=== PATIENT | male | born 1935 | race Caucasian/White ===

== ENCOUNTER 2023-03-25 16:54 | Emergency (ER) | payer MEDICARE, SELFPAY ==
[2023-03-25 16:57] VITALS: BP 163/70
[2023-03-25 17:14] LABS: % Basophils 1.2 % (0-2); % Eosinophils 2.5 % (0-6); % Immature Granulocytes 0.4 % (0-0.5); % Lymphocytes 25.4 % (20.5-51.1); % Monocytes 9.6 % (1.7-9.3); % Neutrophils 60.9 % (42.2-75.2); Absolute Basophils 0.1 10^3/uL (0-0.2); Absolute Eosinophils 0.1 10^3/uL (0-0.7); Absolute Lymphocytes 1.3 10^3/uL (1.2-3.4); Absolute Monocytes 0.5 10^3/uL (0.1-0.6); Absolute Neutrophils 3.1 10^3/uL (1.4-6.5); Hematocrit 33.3 % (39.0-52.0); Hemoglobin 11.2 g/dL (13.0-18.0); Mean Corp Hgb Conc. 33.6 g/dL (33.0-37.0); Mean Corpuscular Hgb 30.7 pg (27.0-31.0); Mean Corpuscular Volume 91.2 fL (80.0-94.0); Mean Platelet Volume 11.1 fL (7.4-10.4); Nucleated Red Blood Cells % 0 % (-); Platelet Count 166 10^3/uL (130-400); Red Blood Cell Count 3.65 10^6/uL (4.70-6.10); Red Cell Dist. Width 13.7 % (11.5-14.5); White Blood Cell Count 5.1 10^3/uL (4.8-10.8)
[2023-03-25 17:35] LABS: ALT (SGPT) 22 U/L (0-50); AST (SGOT) 39 U/L (17-59); Albumin 3.8 g/dl (3.5-5.0); Alkaline Phosphatase 70 U/L (38-126); Blood Urea Nitrogen 14 mg/dl (9-20); Calcium 9.6 mg/dl (8.4-10.2); Carbon Dioxide 31 mmol/L (22-30); Chloride 100 mmol/L (98-107); Glucose 108 mg/dl (70-99); Sodium 138 mmol/L (135-145); Total Bilirubin 0.7 mg/dl (0.2-1.3); Total Protein 6.4 g/dl (6.3-8.2); eGFR > 60.00
[2023-03-25 17:41] LABS: Troponin I < 0.012 ng/ml
--- NOTE | 2023-03-25 18:23 | EDRN ---
Lucretia KEYS in room w/ pt at this time.
--- NOTE | 2023-03-25 18:41 | ED.GENMED ---
History of Present Illness
<Kayy Hoffman PA-C - Last Filed: 03/25/23 19:20>
General
Chief Complaint: Blood Pressure Problem
Source: patient
Exam Limitations: none
Time Seen by Provider: 03/25/23 18:10
Nursing documentation reviewed up to this point in time: agreed with
Travel History
Have you had any contact with someone who has COVID-19?: No
Do you have any symptoms of coronavirus? Fever > 100 degrees, chills, cough, shortness of breath, sore throat, loss of taste or smell, muscle aches, or headache?: No
History of Present Illness
History of Present Illness:
Patient is an 87-year-old male with history hypertension, hyperlipidemia presenting for evaluation of high blood pressure readings at home. He states that his friend was over yesterday and noticed that his face felt a little flushed so he decided
to take his blood pressure. At that time he had readings as high as 180s/ 80s. He denies any severe headaches, changes in vision, back pain, chest pain, shortness of breath, weakness. He has been treated for hypertension for over 2 years with
lisinopril 10 mg. This was prescribed through his primary care provider who he reports recently retired. His prescription has and he has been without his lisinopril for the past approximately 1 month. He is currently searching for a new
primary care provider.
Past History
<Kayy Hoffman PA-C - Last Filed: 03/25/23 19:20>
Past History
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
Patient has exhibited threatening behavior?: No
Social History
Tobacco: Non-smoker
Living: with family
Phy Exam
<Kayy Hoffman PA-C - Last Filed: 03/25/23 19:20>
Physical Exam
Physical Exam:
General: Well appearing and non-toxic, vital signs reviewed�patient afebrile
HEENT: Atraumatic, normocephalic; pupils equal round reactive light bilaterally, extraocular muscles intact bilaterally, protecting airway
Neck: appears supple, no JVD
CV: Regular rate and rhythm, murmur heard at upper sternal border, no evidence of cyanosis
Resp: No evidence of respiratory distress, lungs clear, no accessory muscle use
Abd: Soft, nontender non-distended
Extremities: No deformities, no evidence of cyanosis or edema, DP pulses palpable bilaterally; strength 5 out of 5 in upper and lower extremities
Neuro: alert and oriented to person place time, speech normal, no focal motor deficits, normal finger to nose, cranial nerves II through XII intact bilaterally, sensation fully intact in upper and lower extremities
Psych: Normal affect
Skin: Intact, no rashes
Course
<Kayy Hoffman PA-C - Last Filed: 03/25/23 19:20>
Orders/Labs/Results
Orders:
Orders
03/25/23 16:58
Electrocardiogram (*1) Urgent
Reason for Study: Chest Pain
EKG- Treatment ONCE
03/25/23 17:06
Complete Blood Count/With Diff Urgent
Comprehensive Metabolic Panel Urgent
Troponin I Urgent
Abnormal Lab Results
03/25/23
17:06
RBC 3.65 L 10^6/uL
(4.70-6.10)
Hgb 11.2 L g/dL
(13.0-18.0)
Hct 33.3 L %
(39.0-52.0)
MPV 11.1 H fL
(7.4-10.4)
Monocytes % 9.6 H %
(1.7-9.3)
Carbon Dioxide 31 H mmol/L
(22-30)
Glucose 108 H mg/dl
(70-99)
03/25/23 17:06
03/25/23 17:06
Vital Signs
Initial and Last Documented VS:
Initial Vital Signs
Temp Pulse Resp BP Pulse Ox
98.4 F 77 18 163/70 97
03/25/23 16:57 03/25/23 16:57 03/25/23 16:57 03/25/23 16:57 03/25/23 16:57
Last Documented Vital Signs
Temp Pulse Resp BP Pulse Ox
98.4 F 63 16 163/81 99
03/25/23 16:57 03/25/23 18:45 03/25/23 18:45 03/25/23 18:45 03/25/23 18:45
<Augie George, DO - Last Filed: 03/25/23 19:04>
Orders/Labs/Results
Orders:
Orders
03/25/23 16:58
Electrocardiogram (*1) Urgent
Reason for Study: Chest Pain
EKG- Treatment ONCE
03/25/23 17:06
Complete Blood Count/With Diff Urgent
Comprehensive Metabolic Panel Urgent
Troponin I Urgent
Abnormal Lab Results
03/25/23
17:06
RBC 3.65 L 10^6/uL
(4.70-6.10)
Hgb 11.2 L g/dL
(13.0-18.0)
Hct 33.3 L %
(39.0-52.0)
MPV 11.1 H fL
(7.4-10.4)
Monocytes % 9.6 H %
(1.7-9.3)
Carbon Dioxide 31 H mmol/L
(22-30)
Glucose 108 H mg/dl
(70-99)
03/25/23 17:06
03/25/23 17:06
Vital Signs
Initial and Last Documented VS:
Initial Vital Signs
Temp Pulse Resp BP Pulse Ox
98.4 F 77 18 163/70 97
03/25/23 16:57 03/25/23 16:57 03/25/23 16:57 03/25/23 16:57 03/25/23 16:57
Last Documented Vital Signs
Temp Pulse Resp BP Pulse Ox
98.4 F 63 16 163/81 99
03/25/23 16:57 03/25/23 18:45 03/25/23 18:45 03/25/23 18:45 03/25/23 18:45
<Kayy Hoffman PA-C - Last Filed: 03/25/23 19:20>
MDM/Problems Addressed
Differential Diagnosis Includes:
Asymptomatic hypertension
MDM/Problems Addressed:
Patient is an 87-year-old male history hypertension, hyperlipidemia presenting for evaluation after high blood pressure readings at home. His blood pressure was taken yesterday at home after his friend noticed his face looked slightly red and was
found to have a blood pressure as high as 180s/80s. He denies any headache, back pain, chest pain, shortness of breath, visual changes, weakness. His prescription for lisinopril 10 mg about a month ago and he has been without it. He was
on it for over 10 years to control his blood pressure. PCP retired currently in the process of looking for a new one. He is hemodynamically stable on arrival. Blood pressure of 163/81. He is very well-appearing. Physical exam as documented
above. Neurologically intact. Systolic murmur heard at upper sternal borders. No findings suggestive of end- organ damage. Blood work and EKG were obtained in triage.
CBC with mild anemia with hemoglobin of 11.2. CMP without any clinically significant abnormalities. Kidney function normal. Troponin negative. EKG shows normal sinus rhythm without any signs of ischemia.
Patient remains asymptomatic in emergency department. Physical exam and blood work not indicative of any endorgan damage. Blood pressure not consistent with hypertensive urgency range. He is stable for discharge with primary care follow-up. Will
provide prescription for lisinopril to take in the meantime. Return precautions discussed. Patient is comfortable this plan. All questions answered.
Chronic conditions affecting care:
Hypertension, hyperlipidemia
Acute Exacerbation and/or Progression of Chronic Illness:
Asymptomatic hypertension
<Kayy Hoffman PA-C - Last Filed: 03/25/23 19:20>
*Pulse Oximetry
Patient hypoxic: no
*EKG
Interpreted by ED Provider?: Yes
EKG Intrepretation Date: 03/25/23
Interpretation: normal
Comparison EKG: no changes
Heart Rate: 73
Rate: normal
Rhythm: sinus
[place]: normal axis
Interval: normal interval
QRS Pattern: normal QRS
Ischemia: no ischemia
*Organic Chemist Interpretation
Rate: Organic Chemist- N/A
*Critical Care Note
Total Time (30-74mins, 75-104mins- exclusive of procedures): Not Applicable
ED Attending Note
<Kayy Hoffman PA-C - Last Filed: 03/25/23 19:20>
-
Portions of this chart may have been created with voice recognition software.� Occasional wrong word or��sound alike� substitutions may have occurred due to the inherent limitations of voice recognition software.
<Augie George DO - Last Filed: 03/25/23 19:04>
ED Attending Note
Patient seen and examined by attending physician: Yes
I performed the substantive portion of visit, reviewed & personally made and approve the management plan that is documented in note by myself or CORKY.: Yes
I performed a history and physical exam of patient and discussed management with resident, I reviewed resident's note and agree with documented findings and plan of care.: Yes
ED Attending Note:
I evaluated patient at bedside. The patient is hypertensive. He is well-appearing. He has not been on his blood pressure medication for the past month or so. Will resume lisinopril.
Discharge Plan
Departure
Patient Disposition: Home (Routine Discharge)
Date of Disposition: 03/25/23
Time of Disposition: 19:02
Patient with high blood pressure during this ER visit?: Yes
Condition: Good
Covid-19: Not Applicable
Discharge Problem:
Asymptomatic hypertension
Instructions: High Blood Pressure (DC), BLOOD PRESSURE
Prescriptions:
New
lisinopril 10 mg tablet
10 mg PO DAILY Qty: 30 0RF
No Action
amoxicillin-pot clavulanate 1 TABLET tablet
1 tab PO Q12 Qty: 20 0RF
Paxlovid 300 mg (150 mg x 2)-100 mg tablets,dose pack
See Rx Instructions .ROUTE .COMPLEX Qty: 30 0RF
Rx Instructions:
take TWO 150 mg tablets of nirmatrelvir with ONE 100 mg tablet of ritonavir twice daily for 5 days
Referrals:
UNKNOWN - PT DOES,NOT KNOW [Family Provider] -
Activity Restrictions/Additional Instructions:
-Return to the emergency department with any chest pain, shortness of breath, severe headache, severe back pain, vision changes, weakness, numbness, or any other concerns
-I have sent a prescription to your pharmacy for lisinopril 10mg. It is a 1 month supply. You should establish care with a primary care provider for further evaluation/management of hypertension.
-I have provided your information for a primary care provider request. They should be contacting you within a week to establish care.
Interventions
Interventions:
*Risk Screen - Suicide Last Done: 03/25/23 18:43
*General Assessment Last Done: 03/25/23 18:43
*Neglect/Abuse Screening Last Done: 03/25/23 18:43
ED- Fall Risk Assessment Last Done: 03/25/23 18:43
*ED COVID-19 Vaccine History Last Done: 03/25/23 18:43
ED- Cardiac Assessment Last Done: 03/25/23 18:47
ED- Neurological Assessment Last Done: 03/25/23 18:47
ED- Pulmonary Assessment Last Done: 03/25/23 18:47
[2023-03-25 18:42] VITALS: BMI 19.8
[2023-03-25 18:45] VITALS: BP 163/81
== END 2023-03-25 19:22 | disposition home or self-care (01) ==
LOC: EMR 16:54
PROVIDERS: EMERGENCY PHYSICIAN Emergency Medicine
DX: I10 Essential (primary) hypertension (principal); E78.00 Pure hypercholesterolemia, unspecified
CPT/HCPCS: 99283; 80053; 84484; 85025; 93005

== ENCOUNTER → 2024-11-14 10:32 | Outpatient (REF) | payer MEDICARE, SELFPAY | LOC: RAD 10:32 | DX: R42 Dizziness and giddiness (principal); R01.1 Cardiac murmur, unspecified; I35.0 Nonrheumatic aortic (valve) stenosis; I65.23 Occlusion and stenosis of bilateral carotid arteries | CPT/HCPCS: 93880 ==